=== PATIENT | female | born 1985 | race Caucasian/White ===

== ENCOUNTER 2018-09-08 13:00 | Emergency (ER) | payer MEDICAID ==
[~2018-09-08] VITALS: Ht 170.2 cm; Wt 50.0 kg
[2018-09-08 13:10] VITALS: Ht 170.2 cm; Wt 50.0 kg
[2018-09-08] MEDS ORDERED: OXYCONTIN10 MG PO (13:12)
[2018-09-08] MEDS ORDERED: CYMBALTA60 MG PO (13:13)
[2018-09-08] MEDS ORDERED: REQUIP XL6 MG PO (13:13)
[2018-09-08] MEDS ORDERED: VERAPAMIL HCL40 MG PO (13:14)
[2018-09-08] MEDS ORDERED: TOPAMAX200 MG PO (13:14)
[2018-09-08 13:50] LABS: BASOPHILS 0.2 % (0-2); EOSINOPHILS 0.7 % (0-7); HEMATOCRIT 42.3 % (36.0-48.0); HEMOGLOBIN 14.4 g/dL (12-16); LYMPHOCYTES 25.8 % (15-50); MCV 85.3 fL (80.0-100.0); MEAN PLATELET VOLUME 10.3 fL (7.4-10.4); MONOCYTES 8.9 % (2-11); NEUTROPHILS 64.4 % (40-80); PLATELET COUNT 226 10x3/uL (130-400); RBC 4.96 10x6/uL (4.00-5.40); RDW 14.5 % (11.5-14.5); WBC 4.3 10x3/uL (4.8-10.8)
[2018-09-08 14:08] LABS: ALBUMIN 3.8 g/dL (3.4-5.0); ALKALINE PHOSPHATASE 89 U/L (46-116); ALT (SGPT) 26 U/L (10-68); BILIRUBIN - TOTAL 0.36 mg/dL (0.2-1.3); CALC OSMOLALITY 281 mosm/kg (275-300); CALCIUM 8.2 mg/dL (8.5-10.1); CARBON DIOXIDE 22.6 mmol/L (21.0-32.0); CHLORIDE - SERUM 106 mmol/L (98-107); CREATININE - SERUM 1.1 mg/dL (0.6-1.3); GLUCOSE 93 mg/dL (74-106); POTASSIUM - SERUM 3.4 mmol/L (3.5-5.1); PROTEIN - SERUM 7.4 g/dL (6.4-8.2); SODIUM 141 mmol/L (136-145); UREA NITROGEN 14 mg/dL (7-18); eGFR NON AFRICAN AMERICAN 61 mL/min (90-120)
[2018-09-08 14:11] LABS: MAGNESIUM - SERUM 2.1 mg/dL (1.8-2.4)
[2018-09-08 14:16] LABS: CREATINE KINASE 104 UL (21-215); TROPONIN-I < 0.017 ng/mL (0.000-0.060)
[2018-09-08 14:20] LABS: APPEARANCE CLOUDY (CLEAR); BILIRUBIN NEGATIVE (NEGATIVE); COLOR YELLOW (YELLOW); GLUCOSE NEGATIVE (NEGATIVE); KETONE NEGATIVE (NEGATIVE); NITRITE NEGATIVE (NEGATIVE); PROTEIN NEGATIVE (NEGATIVE); SPECIFIC GRAVITY 1.015 (1.005-1.020); UROBILINOGEN NORMAL (NORMAL)
[2018-09-08 14:35] LABS: UDS - AMPHET NEGATIVE QUAL (NEGATIVE); UDS - BARB NEGATIVE QUAL (NEGATIVE); UDS - BENZO POSITIVE QUAL (NEGATIVE); UDS - COCAINE NEGATIVE QUAL (NEGATIVE); UDS - OPIATE NEGATIVE QUAL (NEGATIVE); UDS - PCP NEGATIVE QUAL (NEGATIVE); UDS - THC NEGATIVE QUAL (NEGATIVE)
[2018-09-08 16:36] VITALS: BP 116/75
== END 2018-09-08 16:38 | disposition home or self-care (01) ==
LOC: D.ER 13:00
PROVIDERS: Family Medicine
DX: R55 Syncope and collapse (principal); F17.200 Nicotine dependence, unspecified, uncomplicated

== ENCOUNTER → 2018-12-31 | Emergency (ER) | payer MEDICAID ==
[~2018-12-31] VITALS: Ht 170.2 cm; Wt 52.3 kg
[~2018-12-31] MED LIST: CYMBALTA60 MG PO; OXYCONTIN10 MG PO; REQUIP XL6 MG PO; TOPAMAX200 MG PO; VERAPAMIL HCL40 MG PO
[2018-12-31 11:52] VITALS: BP 104/62; Ht 170.2 cm; Wt 52.3 kg
[2018-12-31 12:20] LABS: BASOPHILS 0.2 % (0-2); EOSINOPHILS 1.2 % (0-7); HEMATOCRIT 39.3 % (36.0-48.0); HEMOGLOBIN 13.6 g/dL (12-16); LYMPHOCYTES 39.8 % (15-50); MCH 29.7 pg (26.0-34.0); MCHC 34.6 g/dL (31.0-37.0); MCV 85.8 fL (80.0-100.0); MEAN PLATELET VOLUME 10.3 fL (7.4-10.4); MONOCYTES 8.4 % (2-11); NEUTROPHILS 50.4 % (40-80); PLATELET COUNT 194 10x3/uL (130-400); RBC 4.58 10x6/uL (4.00-5.40); RDW 13.9 % (11.5-14.5); WBC 4.9 10x3/uL (4.8-10.8)
[2018-12-31 12:36] LABS: ALBUMIN 3.8 g/dL (3.4-5.0); BILIRUBIN - TOTAL 0.35 mg/dL (0.2-1.3); CALCIUM 8.7 mg/dL (8.5-10.1); CARBON DIOXIDE 21.2 mmol/L (21.0-32.0); POTASSIUM - SERUM 3.2 mmol/L (3.5-5.1)
[2018-12-31 13:10] LABS: HCG SERUM POSITIVE (NEGATIVE)
[2018-12-31 16:58] LABS: HCG URINE NEGATIVE (NEGATIVE)
[2018-12-31 17:01] LABS: APPEARANCE HAZY (CLEAR); COLOR YELLOW (YELLOW); GLUCOSE NEGATIVE (NEGATIVE); KETONE NEGATIVE (NEGATIVE); NITRITE NEGATIVE (NEGATIVE); PROTEIN NEGATIVE (NEGATIVE)
[2018-12-31 17:02] LABS: BILIRUBIN NEGATIVE (NEGATIVE); UROBILINOGEN NORMAL (NORMAL)
== END | disposition home or self-care (01) ==
LOC: D.ER 11:49
PROVIDERS: Emergency Medicine
DX: R55 Syncope and collapse (principal); Z00.01 Encounter for general adult medical examination with abnormal findings